=== PATIENT | male | born 1970 | race Two or more races ===

== ENCOUNTER 2023-12-26 01:54 | Inpatient (IN) | payer OTHER ==
[~2023-12-26] VITALS: Ht 170.2 cm; Wt 66.3 kg
[2023-12-26] MEDS ORDERED: ONDANSETRON HCL/PF 4 MG/2 ML VIAL ONE (02:27)
[2023-12-26] MEDS: MORPHINE SULFATE INJ 2 MG/ML DISP.SYRIN IV ONE (02:28)
[2023-12-26] MEDS ORDERED: MORPHINE SULFATE INJ 4 MG/ML DISP.SYRIN ONE (02:28)
[2023-12-26] MEDS: IV NS 0.9% 1,000 ML BAG IV ONE (02:29)
[2023-12-26] MEDS: ONDANSETRON HCL/PF 4 MG/2 ML VIAL IVP ONE (02:29)
[2023-12-26 02:30] LABS: BASOPHILS # (AUTO) 0.1 K/uL (0.0-0.2); BASOPHILS % (AUTO) 0.9 % (0.0-2.0); EOSINOPHILS # (AUTO) 0.2 K/uL (0.0-0.7); EOSINOPHILS % (AUTO) 2.5 % (0.0-6.0); HEMATOCRIT 45 % (39-51); HEMOGLOBIN 15.4 g/dL (13.5-17.5); LYMPHOCYTES # (AUTO) 1.8 K/uL (0.8-4.8); MEAN CORPUSCULAR HEMOGLOBIN 38 PG (26.0-33.0); MEAN CORPUSCULAR HGB CONC 34 g/dl (31.0-36.0); MEAN CORPUSCULAR VOLUME 112 fL (80-96); MONOCYTES # (AUTO) 0.3 K/uL (0.1-1.30); MONOCYTES % (AUTO) 5.1 % (2.0-12.0); NEUTROPHILS # (AUTO) 3.8 K/uL (1.8-8.9); NEUTROPHILS % (AUTO) 62.5 % (43.0-81.0); PLATELET COUNT (AUTO) 144 K/uL (150-450); RED BLOOD CELL COUNT(AUTO) 4.04 MIL/uL (4.5-6.0); RED CELL DISTRIBUTION WIDTH 14.9 % (11.5-15.0); WHITE BLOOD COUNT (AUTO) 6.1 K/uL (4.3-11.0)
[2023-12-26 02:35] VITALS: O2SAT 98
[2023-12-26 03:08] LABS: ALANINE AMINOTRANSFERASE 165 U/L (12-78); ALBUMIN 2.6 g/dL (3.4-5.0); ALKALINE PHOSPHATASE 134 U/L (46-116); ASPARTATE AMINOTRANSFERASE 141 U/L (15-37); BILIRUBIN,DIRECT 0.6 mg/dL (0.0-0.2); BILIRUBIN,TOTAL 0.9 mg/dL (0.2-1.0); CALCIUM, SERUM 8.8 mg/dL (8.5-10.1); CARBON DIOXIDE 21 mmol/L (21-32); CHLORIDE 111 mmol/L (98-107); CREATININE 0.9 mg/dL (0.6-1.3); GLUCOSE 116 mg/dL (74-106); LIPASE 200 U/L (16-77); POTASSIUM 3.3 mmol/L (3.5-5.1); SODIUM SERUM 143 mmol/L (136-145); UREA NITROGEN, BLOOD 15 mg/dL (7-18)
[2023-12-26 03:16] LABS: APPEARANCE,URINE CLEAR (CLEAR); BILIRUBIN,URINE 1+ (NEGATIVE); BLOOD, URINE NEGATIVE Ery/uL (NEGATIVE); COLOR,URINE DARK YELLOW (YELLOW); KETONES,URINE NEGATIVE (NEGATIVE); LEUKOCYTE ESTERASE ,URINE TRACE (NEGATIVE); NITRITE, URINE NEGATIVE (NEGATIVE); PH,URINE 6.5 (5.0-8.0); PROTEIN,URINE NEGATIVE (NEGATIVE); UGLUCOSE NEGATIVE (NEGATIVE)
[2023-12-26 03:22] LABS: ADD URINE CULTURE NO; BACTERIA,URINE Few /HPF (None Seen); SQUAMOUS EPITHELIAL CELL,UR Rare /HPF (None Seen)
[2023-12-26 05:42] LABS: LACTIC ACID 2.6 mmol/L (0.4-2.0)
[2023-12-26] MEDS ORDERED: ACETAMINOPHEN 650 MG/SUPP.RECT RC PRN (06:00)
[2023-12-26] MEDS ORDERED: MORPHINE SULFATE INJ 4 MG/ML DISP.SYRIN IV PRN (06:00)
[2023-12-26] MEDS ORDERED: ONDANSETRON HCL/PF 4 MG/2 ML VIAL IVP PRN (06:00)
[2023-12-26 08:00] VITALS: BP 135/87; TEMP 97.9; O2SAT 98
[2023-12-26] MEDS: PANTOPRAZOLE 40 MG VIAL IV SCH (08:12)
[2023-12-26] MEDS ORDERED: ACET-868 PO (08:19)
[2023-12-26] MEDS ORDERED: TEMA15CA PO (08:19)
[2023-12-26] MEDS ORDERED: ARIP10TA57 PO (08:19)
[2023-12-26] MEDS ORDERED: LOPE2CAP40 PO (08:19)
[2023-12-26] MEDS ORDERED: LORA-259 PO (08:19)
[2023-12-26] MEDS ORDERED: BACL5TAB PO (08:19)
[2023-12-26] MEDS ORDERED: AMLO5TAB4 PO (08:19)
[2023-12-26] MEDS ORDERED: MIRT-90 PO (08:19)
[2023-12-26] MEDS: POTASSIUM CL. PREMIX PERIPHER. 50 ML IV SCH (09:46)
[2023-12-26 16:00] VITALS: BP 111/73; TEMP 98.2; O2SAT 100
[2023-12-26 20:05] VITALS: BP 114/70; TEMP 98.6; O2SAT 100
[2023-12-26] MEDS ORDERED: BACLOFEN (10 MG) 10 MG TABLET PO PRN (21:00)
[2023-12-26] MEDS: TEMAZEPAM 15 MG CAPSULE PO PRN (22:21)
[2023-12-26] MEDS: MIRTAZAPINE 15 MG TABLET PO SCH (22:21)
[2023-12-27] MEDS: LORAZEPAM 1 MG TABLET PO SCH (01:13)
[2023-12-27 06:37] LABS: BASOPHILS % (AUTO) 0.1 % (0.0-2.0); EOSINOPHILS # (AUTO) 0.2 K/uL (0.0-0.7); EOSINOPHILS % (AUTO) 3.4 % (0.0-6.0); HEMATOCRIT 38 % (39-51); HEMOGLOBIN 12.8 g/dL (13.5-17.5); LYMPHOCYTES # (AUTO) 2.8 K/uL (0.8-4.8); LYMPHOCYTES % (AUTO) 47.4 % (20.0-44.0); MEAN CORPUSCULAR HEMOGLOBIN 38 PG (26.0-33.0); MEAN CORPUSCULAR HGB CONC 34 g/dl (31.0-36.0); MEAN CORPUSCULAR VOLUME 113 fL (80-96); MONOCYTES # (AUTO) 0.5 K/uL (0.1-1.30); MONOCYTES % (AUTO) 8.2 % (2.0-12.0); NEUTROPHILS # (AUTO) 2.5 K/uL (1.8-8.9); NEUTROPHILS % (AUTO) 40.9 % (43.0-81.0); PLATELET COUNT (AUTO) 103 K/uL (150-450); RED BLOOD CELL COUNT(AUTO) 3.34 MIL/uL (4.5-6.0); RED CELL DISTRIBUTION WIDTH 14.2 % (11.5-15.0)
[2023-12-27 07:09] LABS: CALCIUM, SERUM 7.6 mg/dL (8.5-10.1); CREATININE 0.8 mg/dL (0.6-1.3); MAGNESIUM 1.3 mg/dL (1.8-2.4); PHOSPHORUS 2.6 mg/dL (2.5-4.9); POTASSIUM 3.7 mmol/L (3.5-5.1)
[2023-12-27 07:30] VITALS: BP 155/96; TEMP 98.6; O2SAT 100
[2023-12-27 08:58] VITALS: BP 155/96
[2023-12-27] MEDS: ARIPIPRAZOLE 5 MG TABLET PO SCH (08:58)
[2023-12-27] MEDS: AMLODIPINE BESYLATE 5 MG TABLET PO SCH (08:58)
[2023-12-27] MEDS: PANTOPRAZOLE 40 MG TABLET.DR PO SCH (09:00)
[2023-12-27] MEDS: MAGNESIUM OXIDE 400 MG TABLET PO SCH (09:49)
[2023-12-27 10:34] LABS: ALBUMIN 2.4 g/dL (3.4-5.0); BILIRUBIN,DIRECT 0.6 mg/dL (0.0-0.2); TOTAL PROTEIN, SERUM 7.1 g/dL (6.4-8.2)
[2023-12-27] MEDS ORDERED: CEPH-570 PO (11:58)
[2023-12-27 12:46] LABS: AMPHETAMINE, URINE POSITIVE (NEGATIVE); BARBITURATE, URINE NEGATIVE (NEGATIVE); CANNABINOID, URINE NEGATIVE (NEGATIVE); COCCAINE, URINE NEGATIVE (NEGATIVE); OPIATE, URINE NEGATIVE (NEGATIVE); PHENCYCLIDINE SCREEN,URINE NEGATIVE (NEGATIVE)
[2023-12-27 13:11] LABS: BENZODIAZEPINE, URINE POSITIVE (NEGATIVE)
[2023-12-27] MEDS ORDERED: CEPHALEXIN MONOHYDRATE 500 MG CAPSULE PO SCH (21:00)
== END 2023-12-27 17:56 | disposition home or self-care (01) | DRG 247 ==
LOC: ER 02:01 → MED 05:05
PROVIDERS: ADMIT Student in an Organized Health Care Education/Training Program; ATTEND Student in an Organized Health Care Education/Training Program
DX: K56.609 Unspecified intestinal obstruction, unspecified as to partial versus complete obstruction (principal); K85.90 Acute pancreatitis without necrosis or infection, unspecified; E44.0 Moderate protein-calorie malnutrition; K74.60 Unspecified cirrhosis of liver; N39.0 Urinary tract infection, site not specified; E11.9 Type 2 diabetes mellitus without complications; E78.5 Hyperlipidemia, unspecified; E87.6 Hypokalemia; B96.89 Other specified bacterial agents as the cause of diseases classified elsewhere; I10 Essential (primary) hypertension; Z90.49 Acquired absence of other specified parts of digestive tract; Z20.822 Contact with and (suspected) exposure to COVID-19; R74.01 Elevation of levels of liver transaminase levels; Z68.22 Body mass index [BMI] 22.0-22.9, adult
CPT/HCPCS: 36415; 71045-TC; 76705-TC; 80048-TC; 80076-TC; 81001; 83605-TC; 83690-TC; 83735-TC; 84100-TC; 84484-TC; 85025-TC; 87081-TC; 87086-TC; 98960; A4223; G0378; J2270; J2405; J2470; J3480; J7050